=== PATIENT | female | born 1990 ===

== ENCOUNTER 2022-11-04 14:40 | Inpatient (IN) | payer OTHER ==
[2022-11-04] MEDS ORDERED: BETAMET ACET/BETAMET NA PH 30 MG/5 ML VIAL ONE (15:47)
[2022-11-04] MEDS ORDERED: NIFEdipine 10 MG CAPSULE (FP) ONE ×2 (15:47→18:03)
[2022-11-04] MEDS ORDERED: BETAMET ACET/BETAMET NA PH 30 MG/5 ML VIAL IM ONE (16:08)
[2022-11-04] MEDS: ELECTROLYTE-148 SOLN 1,000 ML IV SCH (16:10)
[2022-11-04] MEDS ORDERED: MAGNESIUM 4GM/H20 - 4 GM/100 ML IVPB IVPB ONE ×2 (16:15)
[2022-11-04 16:44] LABS: EOS % 0.9 % (0-4.5); HEMATOCRIT 36.7 % (32.4-45.2); HEMOGLOBIN 12.1 GM/dL (10.7-15.3); LYMPH % 32.5 % (8-40); MCH 29.8 pg (25.7-33.7); MCHC 32.9 g/dl (32.0-36.0); MEAN CELL VOLUME 90.6 fl (80-96); MEAN PLT VOLUME 9.7 fl (7.5-11.1); MONO % 7.3 % (3.8-10.2); NEUT % 58.3 % (42.8-82.8); PLATELET COUNT 174 10^3/uL (134-434); RBC 4.05 M/mm3 (3.60-5.2); RDW 14.8 % (11.6-15.6); RETICULOCYTES 2.02 % (0.5-1.5); WHITE BLOOD COUNT 7.5 K/mm3 (4.0-10.0)
[2022-11-04] MEDS ORDERED: MAGNESIUM SULFATE 20GM/500ML - 20 GM/500 ML INFUS.BAG ONE (16:47)
[2022-11-04 16:48] LABS: INR 0.9 (0.83-1.09); PROTHROMBIN TIME (PATIENT) 10.4 SEC (9.7-13.0)
[2022-11-04 16:54] LABS: CALCIUM 8.6 mg/dL (8.5-10.1)
[2022-11-04 16:55] LABS: BLOOD UREA NITROGEN 14.6 mg/dL (7-18)
[2022-11-04] MEDS: MAGNESIUM SULFATE 20GM/500ML - 20 GM/500 ML INFUS.BAG IV SCH (16:55)
[2022-11-04 16:57] LABS: URIC ACID 6.7 mg/dL (2.6-7.2)
[2022-11-04 16:58] LABS: CREATININE 0.5 mg/dL (0.55-1.3)
[2022-11-04] MEDS: NIFEdipine E.R. 30 MG TABLET PO SCH (17:00)
[2022-11-04] MEDS ORDERED: NIFEdipine 10 MG CAPSULE (FP) PO ONE ×2 (17:00→18:15)
[2022-11-04 17:05] LABS: EPI CELLS >36 /uL (0-25.1); HYALINE CASTS 3 /uL (0-3.1); URINE APPEARANCE CLEAR; URINE BACTERIA 1735 /uL (0-1359); URINE BILIRUBIN NEGATIVE (NEGATIVE); URINE COLOR YELLOW; URINE GLUCOSE (UA) NEGATIVE (NEGATIVE); URINE KETONE NEGATIVE (NEGATIVE); URINE LEUK ESTERASE NEGATIVE (NEGATIVE); URINE NITRITE NEGATIVE (NEGATIVE); URINE PROTEIN 4+ (NEGATIVE); URINE RBC 17 /uL (0-23.9); URINE UROBILINOGEN 0.2 mg/dL (0.2-1.0); URINE WBC 50 /uL (0-25.8)
[2022-11-04 17:06] VITALS: BMI 37.8
[2022-11-04 18:32] LABS: MAGNESIUM 1.9 mg/dL (1.8-2.4)
[2022-11-04] MEDS ORDERED: LABETALOL HCL 20 MG/4 ML VIAL ONE (18:39)
[2022-11-04] MEDS ORDERED: LABETALOL HCL 20 MG/4 ML VIAL IVPUSH ONE (18:45)
[2022-11-04] MEDS ORDERED: NIFEdipine 10 MG CAPSULE (FP) PO SCH (22:00)
[2022-11-05] MEDS ORDERED: ACETAMINOPHEN 325 MG TABLET (FP) ONE (00:29)
[2022-11-05] MEDS ORDERED: ACETAMINOPHEN 325 MG TABLET (FP) PO ONE (00:30)
[2022-11-05] MEDS ORDERED: MAGNESIUM SULFATE 20GM/500ML - 20 GM/500 ML INFUS.BAG ONE ×2 (02:45→18:32)
[2022-11-05] MEDS: MAGNESIUM SULFATE 20GM/500ML - 20 GM/500 ML INFUS.BAG IV SCH (03:00)
[2022-11-05 05:36] LABS: MAGNESIUM 5.3 mg/dL (1.8-2.4)
[2022-11-05] MEDS ORDERED: BETAMET ACET/BETAMET NA PH 30 MG/5 ML VIAL ONE (06:29)
[2022-11-05] MEDS ORDERED: BETAMET ACET/BETAMET NA PH 30 MG/5 ML VIAL IM ONE (06:30)
[2022-11-05] MEDS ORDERED: NIFEdipine E.R. 30 MG TABLET PO ONE ×2 (09:03→23:14)
[2022-11-05] MEDS: NIFEdipine E.R. 30 MG TABLET PO SCH ×2 (09:05→23:15)
[2022-11-05 10:53] LABS: HEMATOCRIT 39.3 % (32.4-45.2); HEMOGLOBIN 13.4 GM/dL (10.7-15.3); MCH 30.2 pg (25.7-33.7); MEAN CELL VOLUME 88.8 fl (80-96); MEAN PLT VOLUME 8.8 fl (7.5-11.1); PLATELET COUNT 197 10^3/uL (134-434); RBC 4.42 M/mm3 (3.60-5.2); RDW 14.7 % (11.6-15.6); WHITE BLOOD COUNT 8.6 K/mm3 (4.0-10.0)
[2022-11-05 11:18] LABS: POTASSIUM 4.5 mmol/L (3.5-5.1)
[2022-11-05 11:20] LABS: CALCIUM 7.7 mg/dL (8.5-10.1)
[2022-11-05 11:21] LABS: ALBUMIN 2.4 g/dl (3.4-5.0)
[2022-11-05 11:24] LABS: CREATININE 0.5 mg/dL (0.55-1.3)
[2022-11-05 11:25] LABS: BILIRUBIN,TOTAL 0.2 mg/dL (0.2-1); TOT PROT 6.1 g/dl (6.4-8.2)
[2022-11-05 11:33] LABS: MAGNESIUM 6.1 mg/dL (1.8-2.4)
[2022-11-05] MEDS ORDERED: SODIUM CHLORIDE 0.9% P/F 10 ML VIAL IJ ONE (11:45)
[2022-11-05] MEDS ORDERED: FENTANYL CITRATE/PF 50 MCG/ML VIAL ONE (11:48)
[2022-11-05] MEDS ORDERED: ONDANSETRON 4 MG/2 ML VIAL ONE (11:48)
[2022-11-05] MEDS ORDERED: morphine SULFATE/PF 1 MG/2 ML (2cc Syringe - QUVA) ONE (11:48)
[2022-11-05] MEDS ORDERED: ceFAZolin SODIUM 1 GM VIAL ONE ×3 (11:48→23:47)
[2022-11-05] MEDS ORDERED: METOCLOPRAMIDE HCL INJECTION 10 MG/2 ML VIAL ONE (11:48)
[2022-11-05] MEDS ORDERED: OXYTOCIN 10 UNITS/ML VIAL ONE (11:48)
[2022-11-05] MEDS ORDERED: NITROGLYCERIN 50 MG/10 ML VIAL IVPB ONE (11:51)
[2022-11-05 12:55] LABS: CORD BASE EXCESS -4.2 mmol/L (0-2); CORD PCO2 44.4 mmHg (30-78); CORD pH 7.313 (7.14-7.44)
[2022-11-05 13:02] LABS: CORD HCO3 29.4 mmHg (20-29); CORD PCO2 65.6 mmHg (30-78); CORD pH 7.269 (7.14-7.44)
[2022-11-05] MEDS: OXYTOCIN 20 UNITS in 0.9% NS 20 UNIT/1,000 ML INFUS.BAG IV SCH (13:15)
[2022-11-05] MEDS ORDERED: OXYTOCIN 20 UNITS in 0.9% NS 20 UNIT/1,000 ML INFUS.BAG IV ONE (13:17)
[2022-11-05] MEDS ORDERED: ACETAMINOPHEN 325 MG TABLET (FP) PO PRN (13:37)
[2022-11-05] MEDS ORDERED: METHYLERGONOVINE MALEATE 0.2 MG/1 ML AMP IM PRN (13:37)
[2022-11-05] MEDS ORDERED: ACETAMINOPHEN 1000 MG/100 ML BAG IVPB PRN (13:38)
[2022-11-05] MEDS ORDERED: CEFAZOLIN 1 GM in DEXTROSE 5%-WATER - 50 ML IVPB SCH (15:00)
[2022-11-05] MEDS ORDERED: MAGNESIUM SULFATE 20GM/500ML - 20 GM/500 ML INFUS.BAG IVPB SCH (15:30)
[2022-11-05] MEDS: CEFAZOLIN 1 GM in DEXTROSE 5%-WATER - 50 ML IVPB SCH ×2 (18:29→23:53)
[2022-11-06 00:23] VITALS: RESP 18
[2022-11-06] MEDS ORDERED: OXYTOCIN 20 UNITS in 0.9% NS 20 UNIT/1,000 ML INFUS.BAG IV ONE (00:40)
[2022-11-06] MEDS: OXYTOCIN 20 UNITS in 0.9% NS 20 UNIT/1,000 ML INFUS.BAG IV SCH (00:40)
[2022-11-06] MEDS: ELECTROLYTE-148 SOLN 1,000 ML IV SCH (00:57)
[2022-11-06] MEDS ORDERED: oxyCODONE HCL 5 MG TABLET PO PRN (01:38)
[2022-11-06] MEDS: SIMETHICONE 80 MG TAB.CHEW (FP) PO PRN ×2 (05:51→19:25)
[2022-11-06] MEDS: CEFAZOLIN 1 GM in DEXTROSE 5%-WATER - 50 ML IVPB SCH ×2 (05:53→11:54)
[2022-11-06 08:44] LABS: BASO % 0.2 % (0-2.0); LYMPH % 15.6 % (8-40); MCH 29.8 pg (25.7-33.7); MCHC 32.5 g/dl (32.0-36.0); MEAN CELL VOLUME 91.8 fl (80-96); MEAN PLT VOLUME 9.4 fl (7.5-11.1); MONO % 7.7 % (3.8-10.2); NEUT % 76.5 % (42.8-82.8); PLATELET COUNT 195 10^3/uL (134-434); WHITE BLOOD COUNT 13.4 K/mm3 (4.0-10.0)
[2022-11-06] MEDS: NIFEdipine E.R. 30 MG TABLET PO SCH (09:14)
[2022-11-06] MEDS: ENOXAPARIN NA (PORCINE) 40 MG/0.4 ML DISP.SYRIN SQ SCH (09:49)
[2022-11-06] MEDS: LABETALOL HCL 200 MG TABLET (FP) PO SCH ×2 (09:49→21:19)
[2022-11-06] MEDS ORDERED: BISACODYL 10 MG SUPP.RECT RC PRN (13:38)
[2022-11-06] MEDS: IBUPROFEN 600 MG TABLET (FP) PO PRN (18:35)
[2022-11-06] MEDS: oxyCODONE HCL 5 MG TABLET PO PRN (19:26)
[2022-11-07] MEDS: SIMETHICONE 80 MG TAB.CHEW (FP) PO PRN ×3 (05:48→21:05)
[2022-11-07] MEDS: IBUPROFEN 600 MG TABLET (FP) PO PRN ×3 (05:48→21:04)
[2022-11-07] MEDS: oxyCODONE HCL 5 MG TABLET PO PRN (08:55)
[2022-11-07] MEDS: ENOXAPARIN NA (PORCINE) 40 MG/0.4 ML DISP.SYRIN SQ SCH (10:11)
[2022-11-07] MEDS: NIFEdipine E.R. 30 MG TABLET PO SCH (10:11)
[2022-11-07] MEDS: LABETALOL HCL 200 MG TABLET (FP) PO SCH ×2 (13:07→21:18)
[2022-11-08 08:08] LABS: BASO % 0.3 % (0-2.0); EOS % 0.5 % (0-4.5); HEMATOCRIT 34.5 % (32.4-45.2); HEMOGLOBIN 11.2 GM/dL (10.7-15.3); LYMPH % 25.4 % (8-40); MCH 29.8 pg (25.7-33.7); MCHC 32.4 g/dl (32.0-36.0); MEAN PLT VOLUME 8.8 fl (7.5-11.1); NEUT % 65.8 % (42.8-82.8); PLATELET COUNT 209 10^3/uL (134-434); RBC 3.75 M/mm3 (3.60-5.2); RDW 15.2 % (11.6-15.6); WHITE BLOOD COUNT 11.5 K/mm3 (4.0-10.0)
[2022-11-08] MEDS: IBUPROFEN 600 MG TABLET (FP) PO PRN (08:21)
[2022-11-08] MEDS: LABETALOL HCL 200 MG TABLET (FP) PO SCH ×3 (08:21→22:12)
[2022-11-08] MEDS: ENOXAPARIN NA (PORCINE) 40 MG/0.4 ML DISP.SYRIN SQ SCH (10:11)
[2022-11-08] MEDS: NIFEdipine E.R. 30 MG TABLET PO SCH (10:11)
[2022-11-08] MEDS: oxyCODONE HCL 5 MG TABLET PO PRN (17:46)
[2022-11-08] MEDS: SIMETHICONE 80 MG TAB.CHEW (FP) PO PRN ×2 (17:49→22:12)
[2022-11-09] MEDS: IBUPROFEN 600 MG TABLET (FP) PO PRN (09:22)
[2022-11-09] MEDS: ENOXAPARIN NA (PORCINE) 40 MG/0.4 ML DISP.SYRIN SQ SCH (09:23)
[2022-11-09] MEDS: LABETALOL HCL 200 MG TABLET (FP) PO SCH (09:23)
[2022-11-09] MEDS: NIFEdipine E.R. 30 MG TABLET PO SCH (09:23)
[2022-11-09 09:50] VITALS: BP 133/88; PULSE 99; TEMP 98.9
== END 2022-11-09 12:00 | disposition home or self-care (01) | DRG 540 ==
LOC: JDEL 14:40 → JLDR 15:45 → J3W 11-06 00:49
PROVIDERS: ADMIT Obstetrics & Gynecology; ATTEND Obstetrics & Gynecology
PROC: 10D00Z1 Extraction of Products of Conception, Low, Open Approach (ICD-10-PCS; principal; 2022-11-05)
DX: O14.14 Severe pre-eclampsia complicating childbirth (principal); O60.14X0 Preterm labor third trimester with preterm delivery third trimester, not applicable or unspecified; O99.213 Obesity complicating pregnancy, third trimester; O24.420 Gestational diabetes mellitus in childbirth, diet controlled; Z3A.34 34 weeks gestation of pregnancy; Z37.0 Single live birth
CPT/HCPCS: 36415; 36600; 76801-TC; 80048; 80053; 81003; 82570; 82803; 82962; 82977; 83010; 83735; 84156; 84450; 84460; 84550; 85025; 85027; 85032; 85045; 85610; 85730; 86780; 86850; 86900; 86901; 86922; 87635; 88307-TC